=== PATIENT | female | born 1955 | race Caucasian/White ===

== ENCOUNTER 2017-01-27 16:15 | Inpatient (IN) | payer BC ==
[~2017-01-27] VITALS: Ht 167.6 cm; Wt 86.7 kg
[2017-01-27 17:37] LABS: HEMATOCRIT 40.2 % (37.0-47.0); HEMOGLOBIN 14.3 g/dl (12.0-16.0); MEAN CELL VOLUME 89.1 fl (81.0-99.0); MEAN CORPUSCULAR HGB 31.7 pg (27.0-31.0); MEAN CORPUSCULAR HGB CONC 35.6 g/dl (33.0-37.0); MEAN PLATELET VOLUME 9.9 fl (9.6-12.3); PLATELET COUNT AUTOMATED 399 10*3/uL (130-400); RED BLOOD COUNT 4.51 10*6/uL (4.10-5.10); RED CELL DISTRI WIDTH 14.2 % (0-14.5); WHITE BLOOD COUNT 16.8 10*3/uL (4.8-10.8)
[2017-01-27] MEDS ORDERED: AVAPRO150 M1 PO (17:43)
[2017-01-27] MEDS ORDERED: HYDR25T PO (17:44)
[2017-01-27] MEDS ORDERED: BUPROPION XL300 MG PO (17:44)
[2017-01-27] MEDS ORDERED: AMLODIPINE BESY10 MG PO (17:45)
[2017-01-27 17:46] LABS: PROTHROMBIN TIME 10.3 SECONDS (9.0-12.4)
[2017-01-27] MEDS ORDERED: K-TAB20 MEQ PO (17:46)
[2017-01-27 17:51] LABS: ALBUMIN 3.7 gm/dl (3.1-4.5); ALKALINE PHOSPHATASE 143 U/L (45-117); BILIRUBIN, TOTAL 0.3 mg/dl (0.2-1.0); BUN 10 mg/dl (7-24); CARBON DIOXIDE 23 mmol/L (21-32); CHLORIDE 95 mmol/L (98-107); EST GLOM FILT AFRICAN AMERICAN > 60 ml/min; GLUCOSE 98 mg/dL (65-99); POTASSIUM 3.5 mmol/L (3.5-5.1); SGOT/AST 80 IU/L (3-35); SGPT/ALT 76 U/L (12-78); SODIUM 134 mmol/L (136-145); TOTAL PROTEIN 8.2 gm/dL (6.4-8.2)
[2017-01-27 18:12] LABS: LYMPHOCYTE # 3.9 10*3/uL (1.3-4.4); METAMYELOCYTES 1 % (0-0); MONOCYTE # 1.2 10*3/uL (0.1-1.0); MYELOCYTES 1 % (0-0); NEUTROPHIL # 11.4 10*3/uL (2.3-7.9); NEUTROPHILS 68 % (47-73); PLATELET SUFFICIENCY NORMAL (NORMAL); TOTAL CELLS COUNTED 100 #CELLS
[2017-01-27 21:11] LABS: BILIRUBIN NEGATIVE (NEGATIVE); BLOOD NEGATIVE (NEGATIVE); CLARITY SL CLOUDY (CLEAR); COLOR YELLOW (YELLOW); GLUCOSE NEGATIVE (NEGATIVE); KETONE NEGATIVE (NEGATIVE); LEUKO ESTERASE NEGATIVE (NEGATIVE); NITRITE NEGATIVE (NEGATIVE); PH 5.5 (5.0-9.0); PROTEIN NEGATIVE (NEGATIVE); SPECIFIC GRAVITY <= 1.005 (1.005-1.030); UROBILINOGEN 0.2 E.U./dl (0.2-1.0)
[2017-01-27 21:19] LABS: RBC 0-2 rbc/hpf (0-2); URINE AMPHETAMINES < 1000 (1000ng/ml); URINE BARBITURATES < 200 (200ng/ml); URINE COCAINE < 300 (300ng/ml); WBC 0-2 wbc/hpf (0-5)
[2017-01-27 21:20] LABS: BACTERIA TRACE; URINE REFLEX COMMENT NO (NO)
[2017-01-28 13:09] LABS: FOLIC ACID 21.88 ng/mL (>5.38)
[2017-01-29 07:12] LABS: BASO % 0.5 % (0.0-1.0); EOS # 0.1 10*3/uL (0.0-0.4); EOS % 1.1 % (1.0-4.0); HEMATOCRIT 38.9 % (37.0-47.0); HEMOGLOBIN 13.5 g/dl (12.0-16.0); IG # 0.2 10*3/uL (0.0-0.1); LYMPH # 1.6 10*3/uL (1.3-4.4); LYMPH % 20.4 % (27.0-41.0); MEAN CORPUSCULAR HGB 32.1 pg (27.0-31.0); MEAN CORPUSCULAR HGB CONC 34.7 g/dl (33.0-37.0); MEAN PLATELET VOLUME 10.2 fl (9.6-12.3); MONO # 0.7 10*3/uL (0.1-1.0); NEUT # 5.3 10*3/uL (2.3-7.9); RED BLOOD COUNT 4.21 10*6/uL (4.10-5.10); RED CELL DISTRI WIDTH 14.2 % (0-14.5)
[2017-01-29 07:19] LABS: MEAN CELL VOLUME 92.4 fl (81.0-99.0); PLATELET COUNT AUTOMATED 275 10*3/uL (130-400)
[2017-01-30] MEDS ORDERED: METHOCARBAMOL750 M1 PO (12:31)
[2017-01-30] MEDS ORDERED: NATURE'S BLEND F1 MG PO (12:31)
[2017-01-30] MEDS ORDERED: THERA TABS1 TAB PO (12:31)
[2017-01-30] MEDS ORDERED: VITAMIN B-11 TAB PO (12:31)
== END 2017-01-30 14:30 | disposition home or self-care (01) | DRG 897 ==
LOC: 5E 16:15
PROVIDERS: Internal Medicine; Student in an Organized Health Care Education/Training Program
DX: F10.239 Alcohol dependence with withdrawal, unspecified (principal); I10 Essential (primary) hypertension; E87.1 Hypo-osmolality and hyponatremia; F41.9 Anxiety disorder, unspecified; F32.9 Major depressive disorder, single episode, unspecified; E66.9 Obesity, unspecified; Z96.649 Presence of unspecified artificial hip joint; Z82.61 Family history of arthritis; Z79.899 Other long term (current) drug therapy; Z88.8 Allergy status to other drugs, medicaments and biological substances; Z91.013 Allergy to seafood; Z84.1 Family history of disorders of kidney and ureter; Z68.30 Body mass index [BMI] 30.0-30.9, adult

== ENCOUNTER 2017-02-26 15:24 | Inpatient (IN) | payer BC ==
[~2017-02-26] VITALS: Ht 167.6 cm; Wt 87.2 kg
[~2017-02-26 15:24] MED LIST: AMLODIPINE BESY10 MG PO; AVAPRO150 M1 PO; BUPROPION XL300 MG PO; HYDR25T PO; K-TAB20 MEQ PO; METHOCARBAMOL750 M1 PO; NATURE'S BLEND F1 MG PO; THERA TABS1 TAB PO; VITAMIN B-11 TAB PO
[2017-02-26 16:00] VITALS: BP 107/57
[2017-02-26 20:49] VITALS: BP 147/64
[2017-02-26 20:56] LABS: HEMATOCRIT 35.6 % (37.0-47.0); HEMOGLOBIN 12.6 g/dl (12.0-16.0); MEAN CELL VOLUME 91.5 fl (81.0-99.0); MEAN CORPUSCULAR HGB 32.4 pg (27.0-31.0); MEAN CORPUSCULAR HGB CONC 35.4 g/dl (33.0-37.0); MEAN PLATELET VOLUME 9.8 fl (9.6-12.3); PLATELET COUNT AUTOMATED 274 10*3/uL (130-400); RED BLOOD COUNT 3.89 10*6/uL (4.10-5.10); RED CELL DISTRI WIDTH 13.1 % (0-14.5); WHITE BLOOD COUNT 8.6 10*3/uL (4.8-10.8)
[2017-02-26 21:06] LABS: PROTHROMBIN TIME 10.7 SECONDS (9.0-12.4)
[2017-02-26 21:11] LABS: ALBUMIN 3.2 gm/dl (3.1-4.5); ALKALINE PHOSPHATASE 141 U/L (45-117); BILIRUBIN, TOTAL 0.2 mg/dl (0.2-1.0); BUN 12 mg/dl (7-24); CARBON DIOXIDE 27 mmol/L (21-32); CHLORIDE 99 mmol/L (98-107); EST GLOM FILT AFRICAN AMERICAN > 60 ml/min; GLUCOSE 89 mg/dL (65-99); POTASSIUM 2.7 mmol/L (3.5-5.1); SGOT/AST 82 IU/L (3-35); SGPT/ALT 88 U/L (12-78); SODIUM 138 mmol/L (136-145); TOTAL PROTEIN 6.8 gm/dL (6.4-8.2)
[2017-02-26 21:23] LABS: BASOPHIL # 0.1 10*3/uL (0-0.1); BASOPHILS 1 % (0-1); LYMPHOCYTE # 1.8 10*3/uL (1.3-4.4); MONOCYTE # 0.5 10*3/uL (0.1-1.0); NEUTROPHIL # 6.2 10*3/uL (2.3-7.9); NEUTROPHILS 72 % (47-73); TOTAL CELLS COUNTED 100 #CELLS
[2017-02-26 21:24] LABS: PLATELET SUFFICIENCY NORMAL (NORMAL); POLYCHROMASIA SLIGHT
[2017-02-27] VITALS: BP 127/57
[2017-02-27 03:02] LABS: BILIRUBIN NEGATIVE (NEGATIVE); BLOOD NEGATIVE (NEGATIVE); CLARITY CLEAR (CLEAR); COLOR YELLOW (YELLOW); GLUCOSE NEGATIVE (NEGATIVE); KETONE NEGATIVE (NEGATIVE); LEUKO ESTERASE NEGATIVE (NEGATIVE); NITRITE NEGATIVE (NEGATIVE); PH 5.5 (5.0-9.0); PROTEIN NEGATIVE (NEGATIVE); SPECIFIC GRAVITY <= 1.005 (1.005-1.030); UROBILINOGEN 0.2 E.U./dl (0.2-1.0)
[2017-02-27 03:05] LABS: URINE AMPHETAMINES < 1000 (1000ng/ml); URINE BARBITURATES < 200 (200ng/ml); URINE COCAINE < 300 (300ng/ml)
[2017-02-27 03:19] LABS: RBC 0-2 rbc/hpf (0-2); URINE REFLEX COMMENT NO (NO); WBC 0-2 wbc/hpf (0-5)
[2017-02-27 04:00] VITALS: BP 122/60
[2017-02-27 08:00] VITALS: BP 126/70
[2017-02-27 12:00] VITALS: BP 142/81
[2017-02-27 15:59] VITALS: BP 140/80
[2017-02-27 20:00] VITALS: BP 130/73
[2017-02-28] VITALS: BP 117/57
[2017-02-28 08:00] VITALS: BP 135/85
[2017-02-28 12:00] VITALS: BP 126/83
[2017-02-28] MEDS ORDERED: PROVENTIL0.09 MG/A1 INH (12:49)
[2017-02-28] MEDS ORDERED: TESSALON PERLE100 MG PO (12:49)
[2017-02-28] MEDS ORDERED: FLUTICASON0.05 MG/AC NAS (13:21)
[2017-02-28] MEDS ORDERED: SUNMARK ALLERGY10 M1 PO (13:21)
[2017-02-28] MEDS ORDERED: CHLORDIAZEPOXID25 M1 PO (13:21)
== END 2017-02-28 14:15 | disposition home or self-care (01) | DRG 897 ==
LOC: 5E 15:24
PROVIDERS: Student in an Organized Health Care Education/Training Program
DX: F10.230 Alcohol dependence with withdrawal, uncomplicated (principal); I10 Essential (primary) hypertension; E87.1 Hypo-osmolality and hyponatremia; F41.9 Anxiety disorder, unspecified; F32.9 Major depressive disorder, single episode, unspecified; J40 Bronchitis, not specified as acute or chronic; Z96.649 Presence of unspecified artificial hip joint; E66.9 Obesity, unspecified; Z68.31 Body mass index [BMI] 31.0-31.9, adult; Z84.89 Family history of other specified conditions; Z83.6 Family history of other diseases of the respiratory system; Z88.8 Allergy status to other drugs, medicaments and biological substances; Z91.013 Allergy to seafood; Z79.899 Other long term (current) drug therapy

== ENCOUNTER 2018-09-22 14:21 | Inpatient (IN) | payer OTHER ==
[~2018-09-22] VITALS: Ht 167.6 cm; Wt 86.2 kg
--- NOTE | ~2018-09-22 | EKG ---
[place], [place] ELECTROCARDIOGRAM REPORT NAME: EMY ELIZABETH UNIT #: [id number] ROOM: 405 DOCTOR: JANUSZ DRAFT REPORT BIRTHDATE: [birth year] [facility] Test Date: 2018-09-22 Test Time: 18:53:08 Pat Name: EMY ELIZABETH Department: Room: 405 2 Gender: F Hall Manager: : [id number] Requested By: STIVEN LAIRD Order Number: [id number] Reading MD: Gabino Judge MD Measurements Intervals Assumption Rate: 103 P: -8 PA: 107 QRS: 24 QRSD: 90 T: 32 QT: 392 QTc: 513 Interpretive Statements Sinus tachycardia Low voltage, precordial leads Prolonged QT interval Baseline wander in lead(s) V6 Electronically Signed On 09-22-2018 20:24:45 PST by Gabino Judge MD CM:EKGRPT:ELECTROCARDIOGRAM REPORT 52 23 STIVEN BOUDREAUX DRAFT REPORT STIVEN LAIRD
[~2018-09-22 14:21] MED LIST changes: +CHLORDIAZEPOXID25 M1 PO; +FLUTICASON0.05 MG/AC NAS; +PROVENTIL0.09 MG/A1 INH; +SUNMARK ALLERGY10 M1 PO; +TESSALON PERLE100 MG PO
[2018-09-22 16:00] VITALS: BP 136/85
[2018-09-22] MEDS ORDERED: AMLODIPINE BESY10 MG PO (17:21)
[2018-09-22] MEDS ORDERED: AVAPRO150 M1 PO (17:22)
[2018-09-22] MEDS ORDERED: CRESTOR5 MG PO (17:26)
[2018-09-22 17:27] LABS: BASO % 0.2 % (0.0-1.0); EOS # 0.1 10*3/uL (0.0-0.4); EOS % 0.5 % (1.0-4.0); HEMATOCRIT 43.8 % (37.0-47.0); LYMPH % 15.3 % (27.0-41.0); MEAN CELL VOLUME 90.9 fl (81.0-99.0); MEAN CORPUSCULAR HGB 31.1 pg (27.0-31.0); MEAN CORPUSCULAR HGB CONC 34.2 g/dl (33.0-37.0); MEAN PLATELET VOLUME 10.2 fl (9.6-12.3); MONO # 0.7 10*3/uL (0.1-1.0); MONO % 5.8 % (3.0-9.0); NEUT # 9.9 10*3/uL (2.3-7.9); NEUT % 77.1 % (47.0-73.0); PLATELET COUNT AUTOMATED 316 10*3/uL (130-400); RED BLOOD COUNT 4.82 10*6/uL (4.10-5.10); RED CELL DISTRI WIDTH 13.2 % (0-14.5); WHITE BLOOD COUNT 12.9 10*3/uL (4.8-10.8)
[2018-09-22 17:29] LABS: INTERNATIONAL NORM RATIO 1.1 (2.0-3.5)
[2018-09-22 17:37] LABS: ALBUMIN 3.4 gm/dl (3.1-4.5); ALKALINE PHOSPHATASE 310 U/L (45-117); BUN 6 mg/dl (7-24); CHLORIDE 94 mmol/L (98-107); CREATININE 0.65 mg/dL (0.55-1.02); SGOT/AST 130 IU/L (3-35); SGPT/ALT 80 U/L (12-78); SODIUM 133 mmol/L (136-145); TOTAL PROTEIN 8.2 gm/dL (6.4-8.2)
[2018-09-22 20:00] VITALS: BP 126/78
[2018-09-23] VITALS: BP 123/70
[2018-09-23 08:00] VITALS: BP 141/84
[2018-09-23 08:20] LABS: BASO % 0.3 % (0.0-1.0); EOS # 0.1 10*3/uL (0.0-0.4); EOS % 1.3 % (1.0-4.0); HEMATOCRIT 39.7 % (37.0-47.0); HEMOGLOBIN 13.3 g/dl (12.0-16.0); LYMPH # 1.7 10*3/uL (1.3-4.4); MEAN CORPUSCULAR HGB 31.7 pg (27.0-31.0); MEAN CORPUSCULAR HGB CONC 33.5 g/dl (33.0-37.0); MEAN PLATELET VOLUME 10.1 fl (9.6-12.3); MONO # 0.6 10*3/uL (0.1-1.0); MONO % 7.4 % (3.0-9.0); NEUT # 5.4 10*3/uL (2.3-7.9); NEUT % 68.7 % (47.0-73.0); PLATELET COUNT AUTOMATED 225 10*3/uL (130-400); RED CELL DISTRI WIDTH 13.6 % (0-14.5); WHITE BLOOD COUNT 7.9 10*3/uL (4.8-10.8)
[2018-09-23 08:22] LABS: MEAN CELL VOLUME 94.5 fl (81.0-99.0)
[2018-09-23 08:31] LABS: BILIRUBIN NEGATIVE (NEGATIVE); BLOOD TRACE-INTACT (NEGATIVE); CLARITY CLOUDY (CLEAR); COLOR YELLOW (YELLOW); GLUCOSE NEGATIVE (NEGATIVE); KETONE NEGATIVE (NEGATIVE); LEUKO ESTERASE 3+ (NEGATIVE); NITRITE POSITIVE (NEGATIVE); PH 6.5 (5.0-9.0); SPECIFIC GRAVITY <= 1.005 (1.005-1.030); UROBILINOGEN 0.2 E.U./dl (0.2-1.0)
[2018-09-23 08:32] LABS: BUN 10 mg/dl (7-24); CHLORIDE 96 mmol/L (98-107); CREATININE 0.78 mg/dL (0.55-1.02); POTASSIUM 3.1 mmol/L (3.5-5.1); SODIUM 134 mmol/L (136-145)
[2018-09-23 08:39] LABS: BACTERIA 4+; WBC TNTC wbc/hpf (0-5)
[2018-09-23 08:52] LABS: URINE AMPHETAMINES < 1000 (1000ng/ml); URINE BARBITURATES < 200 (200ng/ml); URINE BENZODIAZEPINES > 200 (200ng/ml); URINE CANNABINOIDS (THC) < 50 (50ng/ml); URINE COCAINE < 300 (300ng/ml); URINE METHADONE < 300 (300ng/ml); URINE OPIATES < 300 (300ng/ml)
[2018-09-23 09:00] LABS: URINE PHENCYCLIDINE < 25 (25ng/ml)
[2018-09-23 12:00] VITALS: BP 134/86
[2018-09-23 16:00] VITALS: BP 131/96
[2018-09-23 20:00] VITALS: BP 124/65
[2018-09-24] VITALS: BP 112/70
[2018-09-24 06:18] LABS: BUN 10 mg/dl (7-24); CHLORIDE 102 mmol/L (98-107); POTASSIUM 3.2 mmol/L (3.5-5.1); SODIUM 141 mmol/L (136-145)
[2018-09-24 08:00] VITALS: BP 124/76
[2018-09-24] MEDS ORDERED: GOOD NEIGHBOR L10 MG PO (08:18)
[2018-09-24] MEDS ORDERED: ATARAX,VISTARIL50 MG PO (08:18)
[2018-09-24 12:00] VITALS: BP 142/81
[2018-09-24 16:00] VITALS: BP 121/74
[2018-09-24 20:00] VITALS: BP 138/87
[2018-09-25] VITALS: BP 118/56
[2018-09-25 06:07] LABS: BASO # 0.1 10*3/uL (0.0-0.1); BASO % 0.7 % (0.0-1.0); EOS # 0.1 10*3/uL (0.0-0.4); HEMOGLOBIN 12.6 g/dl (12.0-16.0); LYMPH # 1.9 10*3/uL (1.3-4.4); LYMPH % 20.9 % (27.0-41.0); MEAN CELL VOLUME 95.7 fl (81.0-99.0); MEAN CORPUSCULAR HGB 31.7 pg (27.0-31.0); MEAN CORPUSCULAR HGB CONC 33.2 g/dl (33.0-37.0); MEAN PLATELET VOLUME 10.6 fl (9.6-12.3); MONO # 0.8 10*3/uL (0.1-1.0); MONO % 8.6 % (3.0-9.0); NEUT # 6.1 10*3/uL (2.3-7.9); NEUT % 66.9 % (47.0-73.0); PLATELET COUNT AUTOMATED 215 10*3/uL (130-400); RED BLOOD COUNT 3.97 10*6/uL (4.10-5.10); RED CELL DISTRI WIDTH 13.7 % (0-14.5); WHITE BLOOD COUNT 9.1 10*3/uL (4.8-10.8)
[2018-09-25 07:41] LABS: BUN 9 mg/dl (7-24); CHLORIDE 106 mmol/L (98-107); CREATININE 0.74 mg/dL (0.55-1.02); POTASSIUM 3.8 mmol/L (3.5-5.1); SODIUM 142 mmol/L (136-145)
[2018-09-25 08:00] VITALS: BP 116/64
[2018-09-25] MEDS ORDERED: KLOR-CON M2020 ME1 PO (09:17)
== END 2018-09-25 12:51 | disposition home or self-care (01) | DRG 897 ==
LOC: 4E 14:21
PROVIDERS: Internal Medicine; Student in an Organized Health Care Education/Training Program
DX: F10.239 Alcohol dependence with withdrawal, unspecified (principal); E87.1 Hypo-osmolality and hyponatremia; R65.10 Systemic inflammatory response syndrome (SIRS) of non-infectious origin without acute organ dysfunction; N39.0 Urinary tract infection, site not specified; F41.9 Anxiety disorder, unspecified; E78.5 Hyperlipidemia, unspecified; R00.0 Tachycardia, unspecified; E87.6 Hypokalemia; R74.0 Nonspecific elevation of levels of transaminase and lactic acid dehydrogenase [LDH]; Z96.649 Presence of unspecified artificial hip joint; F32.9 Major depressive disorder, single episode, unspecified; D72.829 Elevated white blood cell count, unspecified; I10 Essential (primary) hypertension; E66.9 Obesity, unspecified; Z98.891 History of uterine scar from previous surgery; Z82.61 Family history of arthritis; Z88.8 Allergy status to other drugs, medicaments and biological substances; Z91.013 Allergy to seafood; Z79.899 Other long term (current) drug therapy

== ENCOUNTER 2018-11-02 15:23 | Inpatient (IN) | payer OTHER ==
[~2018-11-02] VITALS: Ht 167.6 cm; Wt 89.4 kg
[~2018-11-02 15:23] MED LIST changes: +ATARAX,VISTARIL50 MG PO; +CRESTOR5 MG PO; +GOOD NEIGHBOR L10 MG PO; +KLOR-CON M2020 ME1 PO
[2018-11-02] MEDS ORDERED: ATARAX,VISTARIL50 MG PO (16:24)
[2018-11-02] MEDS ORDERED: CYCLOBENZAPRINE10 MG PO (16:26)
[2018-11-02] MEDS ORDERED: MILK THISTLE500 M2 PO (16:26)
[2018-11-02 16:32] VITALS: BP 143/81
[2018-11-02 17:24] LABS: BASO # 0.1 10*3/uL (0.0-0.1); BASO % 0.3 % (0.0-1.0); EOS # 0.1 10*3/uL (0.0-0.4); EOS % 0.6 % (1.0-4.0); HEMATOCRIT 39.6 % (37.0-47.0); HEMOGLOBIN 13.8 g/dl (12.0-16.0); LYMPH # 2.9 10*3/uL (1.3-4.4); LYMPH % 15.9 % (27.0-41.0); MEAN CELL VOLUME 87.8 fl (81.0-99.0); MEAN CORPUSCULAR HGB 30.6 pg (27.0-31.0); MEAN CORPUSCULAR HGB CONC 34.8 g/dl (33.0-37.0); MONO # 1.1 10*3/uL (0.1-1.0); MONO % 5.9 % (3.0-9.0); NEUT # 13.8 10*3/uL (2.3-7.9); NEUT % 76.7 % (47.0-73.0); PLATELET COUNT AUTOMATED 433 10*3/uL (130-400); RED BLOOD COUNT 4.51 10*6/uL (4.10-5.10); RED CELL DISTRI WIDTH 12.7 % (0-14.5)
[2018-11-02 17:43] LABS: ALBUMIN 3.4 gm/dl (3.1-4.5); ALKALINE PHOSPHATASE 230 U/L (45-117); BUN 4 mg/dl (7-24); CHLORIDE 96 mmol/L (98-107); CREATININE 0.68 mg/dL (0.55-1.02); POTASSIUM 2.8 mmol/L (3.5-5.1); SGOT/AST 65 IU/L (3-35); SGPT/ALT 55 U/L (12-78); SODIUM 136 mmol/L (136-145)
[2018-11-02 20:00] VITALS: BP 130/71
[2018-11-02 20:40] LABS: BILIRUBIN NEGATIVE (NEGATIVE); BLOOD TRACE-INTACT (NEGATIVE); CLARITY SL CLOUDY (CLEAR); COLOR YELLOW (YELLOW); GLUCOSE NEGATIVE (NEGATIVE); KETONE NEGATIVE (NEGATIVE); LEUKO ESTERASE 3+ (NEGATIVE); NITRITE POSITIVE (NEGATIVE); UROBILINOGEN 0.2 E.U./dl (0.2-1.0)
[2018-11-02 21:08] LABS: WBC TNTC wbc/hpf (0-5)
[2018-11-02 21:17] LABS: URINE AMPHETAMINES < 1000 (1000ng/ml); URINE BARBITURATES < 200 (200ng/ml); URINE BENZODIAZEPINES < 200 (200ng/ml); URINE CANNABINOIDS (THC) < 50 (50ng/ml); URINE COCAINE < 300 (300ng/ml); URINE METHADONE < 300 (300ng/ml); URINE OPIATES < 300 (300ng/ml)
[2018-11-02 21:20] LABS: URINE PHENCYCLIDINE < 25 (25ng/ml)
[2018-11-03] VITALS: BP 129/84
[2018-11-03 08:00] VITALS: BP 124/62
[2018-11-03 08:43] LABS: ALBUMIN 3.1 gm/dl (3.1-4.5); ALKALINE PHOSPHATASE 252 U/L (45-117); BUN 6 mg/dl (7-24); CHLORIDE 99 mmol/L (98-107); CREATININE 0.67 mg/dL (0.55-1.02); POTASSIUM 2.9 mmol/L (3.5-5.1); SGOT/AST 90 IU/L (3-35); SGPT/ALT 66 U/L (12-78); SODIUM 138 mmol/L (136-145); TOTAL PROTEIN 7.3 gm/dL (6.4-8.2)
[2018-11-03 12:00] VITALS: BP 133/67
[2018-11-03 16:00] VITALS: BP 119/73
[2018-11-03 20:00] VITALS: BP 117/52
[2018-11-04] VITALS: BP 123/74
[2018-11-04 06:42] LABS: BASO # 0.1 10*3/uL (0.0-0.1); BASO % 0.6 % (0.0-1.0); EOS # 0.1 10*3/uL (0.0-0.4); EOS % 0.9 % (1.0-4.0); HEMATOCRIT 38.4 % (37.0-47.0); HEMOGLOBIN 12.6 g/dl (12.0-16.0); LYMPH % 20.5 % (27.0-41.0); MEAN CELL VOLUME 92.3 fl (81.0-99.0); MEAN CORPUSCULAR HGB 30.3 pg (27.0-31.0); MEAN CORPUSCULAR HGB CONC 32.8 g/dl (33.0-37.0); MEAN PLATELET VOLUME 10.3 fl (9.6-12.3); MONO # 0.6 10*3/uL (0.1-1.0); MONO % 6.1 % (3.0-9.0); NEUT # 7.1 10*3/uL (2.3-7.9); PLATELET COUNT AUTOMATED 311 10*3/uL (130-400); RED BLOOD COUNT 4.16 10*6/uL (4.10-5.10)
[2018-11-04 07:17] LABS: BUN 6 mg/dl (7-24); CHLORIDE 105 mmol/L (98-107); POTASSIUM 3.1 mmol/L (3.5-5.1); SODIUM 140 mmol/L (136-145)
[2018-11-04 08:00] VITALS: BP 124/74; BP 126/68
[2018-11-04 12:00] VITALS: BP 145/82
[2018-11-04 16:00] VITALS: BP 130/81
[2018-11-04 20:00] VITALS: BP 122/58
[2018-11-05] VITALS: BP 117/57
[2018-11-05 08:00] VITALS: BP 121/74
[2018-11-05] MEDS ORDERED: ATARAX,VISTARIL50 MG PO (10:06)
== END 2018-11-05 11:45 | disposition home or self-care (01) | DRG 872 ==
LOC: 4E 15:23
PROVIDERS: Family Medicine; Student in an Organized Health Care Education/Training Program
DX: A41.9 Sepsis, unspecified organism (principal); F10.239 Alcohol dependence with withdrawal, unspecified; N39.0 Urinary tract infection, site not specified; F41.9 Anxiety disorder, unspecified; F32.9 Major depressive disorder, single episode, unspecified; E66.9 Obesity, unspecified; I10 Essential (primary) hypertension; E78.5 Hyperlipidemia, unspecified; D47.3 Essential (hemorrhagic) thrombocythemia; Z96.649 Presence of unspecified artificial hip joint; B96.1 Klebsiella pneumoniae [K. pneumoniae] as the cause of diseases classified elsewhere; Z82.61 Family history of arthritis; Z88.8 Allergy status to other drugs, medicaments and biological substances; Z91.013 Allergy to seafood; Z79.899 Other long term (current) drug therapy; Z68.31 Body mass index [BMI] 31.0-31.9, adult